=== PATIENT | female | born 1985 | race Caucasian/White ===

== ENCOUNTER 2018-04-11 14:03 | Emergency (ER) | payer OTHER ==
[~2018-04-11] VITALS: Ht 162.6 cm; Wt 71.0 kg
[2018-04-11 15:12] LABS: BASOPHILS # (AUTO) 0.03 x10^3/uL (0-0.1); BASOPHILS % (AUTO) 0 % (0-1); EOSINOPHILS # (AUTO) 0.25 x10^3/uL (0-0.4); EOSINOPHILS % (AUTO) 3 % (1-7); LYMPHOCYTES # (AUTO) 2.07 x10^3/uL (1-3.4); LYMPHOCYTES % (AUTO) 21 % (22-44); MD NO; MEAN CORPUSCULAR HEMOGLOBIN 29.6 pg (27.0-34.8); MEAN CORPUSCULAR HGB CONC 33.8 g/dL (32.4-35.8); MEAN CORPUSCULAR VOLUME 87.5 fL (80-100); MEAN PLATELET VOLUME 9.1 fL (7.4-10.4); MONOCYTES % (AUTO) 5 % (2-9); NEUTROPHILS # (AUTO) 7.01 x10^3/uL (1.8-6.8); NEUTROPHILS % (AUTO) 71 % (42-75); PLATELET COUNT 264 x10^3/uL (130-400); RED BLOOD COUNT 4.84 x10^6/uL (3.82-5.3); RED CELL DISTRIBUTION WIDTH 13.1 % (9.6-15.2)
[2018-04-11 15:19] LABS: ALBUMIN 3.7 g/dL (3.4-5.0); ANION GAP 6 mmol/L (5-15); CALCIUM 8.8 mg/dL (8.5-10.1); CHLORIDE 108 mmol/L (98-107)
[2018-04-11 15:26] LABS: CREATININE 0.78 mg/dL (0.55-1.02); T4 (THYROXINE) 9.2 mcg/dL (4.8-13.9); TROPONIN I < 0.015 ng/mL (0.000-0.045)
[2018-04-11 16:42] VITALS: BP 122/71
== END 2018-04-11 16:44 | disposition home or self-care (01) ==
LOC: ED 16:40
DX: R00.2 Palpitations (principal); J45.909 Unspecified asthma, uncomplicated
CPT/HCPCS: 36415; 71045; 80048; 82040; 84436; 84443; 84484; 85025; 93005; 99285